=== PATIENT | female | born 1940 | race Caucasian/White ===

== ENCOUNTER 2022-08-31 08:33 | Observation (INO) ==
[~2022-08-31 08:33] MED LIST: Buffered Lidocaine 1% SYRIN 1 ml INTRADERM ONE; Lactated Ringers 1000 ml BAG 1,000 ML IV SCH; Naloxone 0.4 mg VIAL 0.4 mg/ml 1 ml VIAL IV PRN; Ondansetron 4 mg VIAL 2 MG/ML 2 ml VIAL IV PRN; Tranexamic Acid 1,000 MG/10 ML 1,000 MG in NS 0.9% 50 ML 50 ML IV SCH; fentaNYL 100 mcg/2 ml 50 MCG/ML VIAL IV PRN; oxyCODONE/Acetamin 5/325 mg TAB PO PRN
[2022-08-31] MEDS ORDERED: Midazolam 2 mg/2 ml VIAL 1 mg/ml 2 ml VIAL (2 mg) ONE (08:41)
[2022-08-31] MEDS ORDERED: ceFAZolin 2 GM in NS PREMIX 2 GM/100 ML BAG IVPB ONE (09:01)
[2022-08-31 09:03] LABS: Rapid COVID-19 Molecular Undetected (Undetected)
[2022-08-31] MEDS ORDERED: ROPIVACAINE 5 MG/ML 30 ML BTL (0.5%) ONE (10:23)
[2022-08-31] MEDS ORDERED: fentaNYL 100 mcg/2 ml 50 MCG/ML VIAL ONE (10:32)
[2022-08-31] MEDS ORDERED: Magnesium Hydroxide LIQ 30 ML UDC PO PRN (12:29)
[2022-08-31] MEDS ORDERED: Lactulose 30 ml UDC PO PRN (12:29)
[2022-08-31] MEDS ORDERED: Ondansetron 4 mg VIAL 2 MG/ML 2 ml VIAL IV PRN (12:29)
[2022-08-31] MEDS ORDERED: Ondansetron ODT 4 mg TAB 4 MG TAB PO PRN (12:29)
[2022-08-31] MEDS ORDERED: Propofol 10 MG/ML 20 ML BTL ONE (13:07)
[2022-08-31] MEDS: Lactated Ringers 1000 ml BAG 1,000 ML IV SCH (14:54)
[2022-08-31] MEDS: ceFAZolin 1 GM ADVAN 1 GM in NS 0.9% 50 ML 50 ML IVPB SCH (20:56)
[2022-08-31] MEDS: Magnesium Hydroxide LIQ 30 ML UDC PO SCH (20:58)
[2022-09-01] MEDS: Lactated Ringers 1000 ml BAG 1,000 ML IV SCH (01:20)
[2022-09-01 06:23] LABS: Hematocrit 37.3 % (35-45); Hemoglobin 12.9 g/dL (11.5-14.3); Mean Platelet Volume 8.7 fL (7.5-11.2); Platelet Count 256 10^3/uL (150-450)
[2022-09-01 06:35] LABS: Calcium 9.6 mg/dL (8.6-10.3); Creatinine, Serum 0.6 mg/dL (0.51-0.95); Potassium 4.5 mmol/L (3.5-5.0); eGFR CKD-EPI 90.1 (>60)
[2022-09-01 06:55] VITALS: BP 126/72
[2022-09-01] MEDS: ceFAZolin 1 GM ADVAN 1 GM in NS 0.9% 50 ML 50 ML IVPB SCH ×3 (08:02→14:45)
[2022-09-01] MEDS: Magnesium Hydroxide LIQ 30 ML UDC PO SCH (08:31)
[2022-09-01] MEDS ORDERED: Vitamin THERAPEUTIC TAB PO SCH (09:00)
== END 2022-09-01 14:12 | disposition home or self-care (01) ==
LOC: SSU 08:33 → OR 08:33
PROVIDERS: ADMIT Orthopaedic Surgery Adult Reconstructive Orthopaedic Surgery; ATTEND Orthopaedic Surgery Adult Reconstructive Orthopaedic Surgery